=== PATIENT | female | born 1975 | race Asian ===

== ENCOUNTER 2021-02-13 16:56 | Emergency (ER) | payer MEDICAID, SELFPAY ==
[~2021-02-13] VITALS: Ht 157.5 cm; Wt 73.5 kg
[2021-02-13 17:38] VITALS: BP_SYST 101
--- NOTE | 2021-02-13 18:01 | NUR ---
Patient to ER bed 5 to gown for evaluation. Side rails up. Report given to Nay CARUSO.
--- NOTE | 2021-02-13 18:05 | NUR ---
ER DR. GUTIERREZ AT THE BEDSIDE EXAMINING PT
--- NOTE | 2021-02-13 18:15 | NUR ---
PT CAME IN FROM HOME STATES SHE TESTED+ FOR COVID A LITTLE OVER A WEEK AGO. SHE HAS A COUGH AND FEVER AT HOME WITH FEELING OF FATIGUE. PT IS AMBULATORY, AAOX4, V/S STABLE
[2021-02-13] MEDS ORDERED: PRED20TA PO (18:36)
[2021-02-13] MEDS ORDERED: AZIT500T3 PO (18:36)
[2021-02-13] MEDS ORDERED: ALBU8.5H8 INH (18:36)
[2021-02-13] MEDS ORDERED: predniSONE 20 MG TABLET PO ONE (18:45)
--- NOTE | 2021-02-13 19:20 | NUR ---
Patient given written and verbal discharge instructions and verbalizes understanding. ER MD discussed with patient the results and treatment provided. Patient in stable condition. ID arm band removed. Rx of PROAIR AND ZITHROMAX given. Patient educated on pain management and to follow up with PMD. Pain Scale 0/10. Opportunity for questions provided and answered. Medication side effect fact sheet provided.
[2021-02-13 19:25] VITALS: BP_SYST 101
== END 2021-02-13 19:25 | disposition home or self-care (01) ==
LOC: SED 16:56
DX: U07.1 COVID-19 (principal); Z79.899 Other long term (current) drug therapy
CPT/HCPCS: 71045; 99283; J7512

== ENCOUNTER 2021-02-15 14:15 | Emergency (ER) | payer MEDICAID ==
[~2021-02-15] VITALS: Ht 160 cm; Wt 54.4 kg
[2021-02-15 14:15] VITALS: BP_SYST 103
[~2021-02-15 14:15] MED LIST: ALBU8.5H8 INH; AZIT500T3 PO; PRED20TA PO
--- NOTE | 2021-02-15 14:15 | NUR ---
TRIAGED IN [facility] TENT, DR GUTIERREZ EVALUATING PT. NO COMPLAINTS.
--- NOTE | 2021-02-15 14:25 | NUR ---
PT HERE FOR FOLLOW UP, NO COMPLAINTS. STATES SHE FEELS BETTER
[2021-02-15] MEDS ORDERED: HYDR200T80 PO (14:44)
[2021-02-15] MEDS ORDERED: ALBU8.5H8 INH (14:44)
--- NOTE | 2021-02-15 15:35 | NUR ---
Patient given written and verbal discharge instructions and verbalizes understanding. ER MD discussed with patient the results and treatment provided. Patient in stable condition. ID arm band removed. Rx of ALBUTEROL, HYDROXYCHLOROQUINE given. Patient educated on pain management and to follow up with PMD. Pain Scale 0/10. Opportunity for questions provided and answered. Medication side effect fact sheet provided.
== END 2021-02-15 15:35 | disposition home or self-care (01) ==
LOC: SED 14:15
DX: U07.1 COVID-19 (principal); Z79.899 Other long term (current) drug therapy
CPT/HCPCS: 71045; 99283